=== PATIENT | male | born 1970 | race Asian ===

== ENCOUNTER 2018-11-20 00:21 | Emergency (ER) | payer MEDICAID ==
[~2018-11-20] VITALS: Ht 172.7 cm; Wt 81.6 kg
[2018-11-20 00:26] VITALS: BP 133/76
[2018-11-20] MEDS ORDERED: predniSONE 20 MG TABLET ONE (00:55)
[2018-11-20] MEDS ORDERED: predniSONE 20 MG TABLET PO ONE (01:00)
== END 2018-11-20 00:55 | disposition home or self-care (01) ==
LOC: ER 00:26 → EDSEX 00:26 → ER 00:55
DX: G51.0 Bell's palsy (principal); F17.200 Nicotine dependence, unspecified, uncomplicated
CPT/HCPCS: 99283; J7512